=== PATIENT | male | born 1965 | race Caucasian/White ===

== ENCOUNTER 2022-10-14 16:29 | Emergency (ER) | payer SELFPAY ==
[2022-10-14 16:35] VITALS: BP 134/93; PULSE 77; RESP 14; TEMP 36.2; O2SAT 99
[2022-10-14 18:07] LABS: Abs Immature Grans 0.04 10^3/uL (0.0-0.06); Absolute Basophil Count 0.06 10^3/uL (0.0-0.2); Absolute Eosinophil Count 0.04 10^3/uL (0.0-0.7); Absolute Lymphocyte Count 1.64 10^3/uL (1.2-3.4); Absolute Monocyte Count 0.74 10^3/uL (0.1-0.8); Absolute Neutrophil Count 9.18 10^3/uL (1.2-6.7); Basophils % 0.5; Eosinophils % 0.3; HCT 49.8 % (40.0-50.0); HGB 17.4 g/dL (13.5-17.5); Immature Grans % 0.3; MCH 31.2 pg (27.0-33.0); MCHC 34.9 % (32.0-36.0); MCV 89 fL (80-95); MPV 9.1 fL (8.0-11.0); Monocytes % 6.3; Neutrophils % 78.6; Platelet Count 390 10^3/uL (130-400); RBC 5.57 10^6/uL (4.36-5.78); RDW 13.2 % (11.8-14.1); RDW-SD 43.4 fL; WBC 11.68 10^3/uL (4.4-10.8)
--- NOTE | 2022-10-14 18:09 | W.ED.GENAD ---
Discharge Plan Disposition Patient Disposition: Home Discharge Details Chief Complaint: GenMedical Clinical Impression: Inguinal hernia recurrent bilateral Primary Care Provider: Ronn Mcmahon ED Provider: Kamlesh Torres Home Meds and New Rx's Prescriptions: No Action paroxetine HCl [Paxil] 10 mg tablet 10 mg PO DAILY Qty: 90 3RF Discharge Instructions Instructions: Inguinal Hernia (ED) Additional Instructions: Please follow-up with general surgery. Please return to the emergency department for any worsening symptoms. Medical Decision Making 57-year-old male presents with painful bilateral direct inguinal hernias have been present for some time, pain and tenderness began this morning, decreased p.o. intake and slight nausea without vomiting, was able to have a bowel movement and passed gas earlier today. Abdomen soft nontender nondistended. Hemodynamically stable. Does appear uncomfortable. Soft hernias on palpation without overlying skin changes, easily reducible at bedside with great relief of discomfort. No sign of incarceration or strangulation at this moment. Low suspicion for bowel obstruction. Will obtain basic labs will provide analgesia and antiemetics. Close reassessment of symptoms. If improved and stable will have patient follow-up with general surgery 19: 36 patient feeling much better, patient now ambulatory without any discomfort, no further nausea or abdominal pain; hernia sites soft and easily reducible. Patient will be given prompt follow-up with general surgery for evaluation for elective repair. Given home care instructions and return precautions HPI General Date/Time Provider Initiated Documentation: 10/14/22 16:45. HPI Narrative: 57-year-old male presents with bilateral inguinal hernias associate with decreased p.o. intake and nausea today severe pain in the bilateral groins. Was able to have a bowel movement and passed gas earlier. Related Data Home Medications Medication Instructions Recorded Confirmed paroxetine HCl 10 mg tablet (Paxil) 10 mg PO DAILY #90 tab-caps 04/02/22 10/14/22 Previous Rx's Medication Instructions Recorded paroxetine HCl 10 mg tablet (Paxil) 10 mg PO DAILY #90 tab-caps 04/02/22 Allergies Allergy/AdvReac Type Severity Reaction Status Date / Time No Known Allergies Allergy Unverified 10/14/22 17:45 General Stated Complaint: GenMedical LILI: 3 Review of Systems Narrative: Review of Systems Constitutional: negative Eyes: negative ENT: negative Cardiovascular: negative Respiratory: negative Gastrointestinal: negative : Hernia pain Musculoskeletal: negative Skin: negative Neurologic: negative Psych: negative PFSH All Active Problems (Updated 10/14/22 @ 19:39 by Kamlesh Torres MD) Inguinal hernia recurrent bilateral (Acute) Surgical History (Updated 12/03/17 @ 14:36 by [employer] [place]) Hemorrhoidectomy Family History Mother Personal history of malignant neoplasm Father No problems noted. Sister No problems noted. Brother No problems noted. Grandfather No problems noted. Grandmother No problems noted. Social History Smoking/Tobacco Use Status: Current every day Tobacco Type: cigarettes Smoking risk assessment performed?: Yes Alcohol Intake: never Drug use: Never Substance use type: does not use Do you feel safe in your relationship?: Yes Exam Narrative Exam Narrative: Physical Examination General: alert, awake, cooperative, appears uncomfortable HEENT: normocephalic, atraumatic; PERRL, EOM intact, conjunctiva normal; no nasal discharge; moist mucous membranes, oral and pharyngeal mucosa normal, tolerating secretions Neck: supple, trachea midline; full ROM Chest: normal to inspection Respiratory: normal respiratory effort, speaking in full sentences, clear to auscultation, no wheezing, rales or rhonchi Cardiac: regular rate, regular rhythm, S1S2 intact, no murmurs rubs or gallops GI: abdomen soft, non-tender, non-distended; no palpable mass or hepatosplenomegaly : Bilateral direct inguinal hernias tender to the touch however soft easily reducible without overlying skin changes Skin: no lesions, rashes or trauma appreciated Neuro: AAOx3, normal speech, moving all extremities Psych: Appropriate mood and affect Course Vital Signs Vital signs: Vital Signs Temperature 36.2 C L 10/14/22 16:35 Pulse 77 10/14/22 16:35 Respiratory Rate 14 10/14/22 16:35 Blood Pressure 134/93 H 10/14/22 16:35 Pulse Oximetry 99 10/14/22 16:35 Temperature 36.2 C L 10/14/22 16:35 Temperature Source Skin 10/14/22 16:35 Pulse 77 10/14/22 16:35 Respiratory Rate 14 10/14/22 16:35 Respiratory Effort Normal 10/14/22 17:42 Respiratory Depth Normal 10/14/22 17:42 Respiratory Pattern Normal 10/14/22 17:42 Blood Pressure 134/93 H 10/14/22 16:35 Blood Pressure Position Sitting 10/14/22 16:35 Pulse Oximetry 99 10/14/22 16:35 Oxygen Delivery Method Room Air 10/14/22 16:35 Oxygen Flow Rate 0 10/14/22 16:35 Pain Level 8 10/14/22 16:35 Lab/Test Results Lab/Test Results: Laboratory Tests Range/Units 10/14/22 17:36 WBC (4.4-10.8) 10^3/uL 11.68 H RBC (4.36-5.78) 10^6/uL 5.57 Hgb (13.5-17.5) g/dL 17.4 Hct (40.0-50.0) % 49.8 MCV (80-95) fL 89 MCH (27.0-33.0) pg 31.2 MCHC (32.0-36.0) % 34.9 RDW (11.8-14.1) % 13.2 Plt Count (130-400) 10^3/uL 390 MPV (8.0-11.0) fL 9.1 Immature Gran % 0.3 Neutrophils % 78.6 Lymphocytes % 14.0 Monocytes % 6.3 Eosinophils % 0.3 Basophils % 0.5 Nucleated RBC % (0.0-0.3) % 0.0 Absolute Neutrophils (1.2-6.7) 10^3/uL 9.18 H Absolute Lymphocytes (1.2-3.4) 10^3/uL 1.64 Absolute Monocytes (0.1-0.8) 10^3/uL 0.74 Absolute Eosinophils (0.0-0.7) 10^3/uL 0.04 Absolute Basophils (0.0-0.2) 10^3/uL 0.06
[2022-10-14 18:26] LABS: ALT 25 U/L (16-63); AST 16 U/L (15-37); Albumin 4.6 g/dL (3.4-5.0); Alkaline Phosphatase 63 U/L (46-116); Anion Gap 9.7 mmol/L (3-11); BUN 15 mg/dL (7-18); Bilirubin, Total 0.8 mg/dL (0.2-1.0); CO2 29.3 mmol/L (21.0-32.0); CREATININE 0.7 mg/dL (0.70-1.30); Calcium 9.7 mg/dL (8.5-10.1); Chloride 100 mmol/L (98-107); Estimated GFR 108.82 (mL/min/1.73m2); Glucose 87 mg/dL (74-106); Sodium 139 mmol/L (136-145); Total Protein 8.2 g/dL (6.4-8.2)
[2022-10-14] MEDS: Ketorolac 15 MG/ML VIAL IVP (18:44)
[2022-10-14] MEDS: Ondansetron 4 MG/2 ML VIAL IVP (18:45)
[2022-10-14] MEDS: Normal Saline 1,000 ML 1000 ML IV (18:45)
[2022-10-14 20:06] VITALS: BP 132/88; PULSE 72; RESP 14; O2SAT 98
== END 2022-10-14 20:07 | disposition home or self-care (01) ==
PROVIDERS: Emergency Provider Emergency Medicine; PCP Family Medicine
DX: K40.21 Bilateral inguinal hernia, without obstruction or gangrene, recurrent (principal)
CPT/HCPCS: 36415; 80053; 96361; 96374; 96375; 99284; 85025; J1885; J2405

== ENCOUNTER 2022-11-06 06:11 | Day surgery (SDC) | payer SELFPAY ==
[2022-11-06] VITALS (9 sets, daily range): BP systolic 124–156; BP diastolic 75–95; PULSE 52–85; RESP 12–18; TEMP 36–36.6; O2SAT 96–100; BMI 18.2
--- NOTE | 2022-11-06 06:21 | W.PM.PROGNOT ---
Date of Service Date of service: 11/06/22 Time of Service: 06:21 Assessment and Plan Assessment and plan (1) Left inguinal hernia: Status: Acute Assessment and plan: Tl is a pleasant 57-year-old gentleman who on examination certainly has a left inguinal hernia that is a good size.? It does drop down into his scrotum.? It is easily reduced and nonpainful at this time.? We discussed open repair of inguinal hernia.? I reviewed the pathophysiology using a pamphlet as well as the possible complications.? We reviewed pain control with TAP block.? At the end of our conversation patient had a good understanding of the surgery as well as the possible complications.? Risks, benefits and complications have been reviewed. Complications include but are not limited to bleeding, infection, injury to vas, vessels and nerves, injury to bowel, recurrence (3-5%), chronic pain and adverse reaction to medications. Questions were entertained and answered to their satisfaction and they wished to proceed. On the right side I do not believe that he does have a hernia I think he is got an enlarged lymph node.? I could not feel enlarged lymph nodes on the left side or supraclavicularly.? I am concerned about his 20 pound weight loss.? I did tell him that I believe that the right side is a lymph node that is enlarged.? I told him I would make an incision to go down and make sure that he does not have a right inguinal hernia.? If what I find is indeed an enlarged lymph node I will remove it and send it to pathology.? If he does have a small underlying right inguinal hernia then I will fix that as well.? He is in agreement with this plan. Anesthesia: general (without airway) Previous surgical intolerances: No Previous surgical complications: No Pulmonary risk factors: long time smoker Planned procedure: Yes Sleep apnea risks: No Can climb one flight of stairs (12-13 steps) in less than 30 seconds without stopping and without symptoms: Yes The surgery proposed for this patient is: low risk Active cardiac conditions: none Active risk factors: none ASA (acetylsalicylic acid): not used Beta blockers: not used Proceed with left inguinal hernia repair, possible right inguinal hernia repair, possible right inguinal lymph node excisional biopsy. (2) Inguinal lymphadenopathy: Status: Acute Subjective Subjective Interval history since last seen: I saw Tl today in same-day surgery prior to his left inguinal hernia repair possible right inguinal hernia repair versus right inguinal lymph node removal. He has not had any new symptoms. He did not have any upper respiratory infection since I saw him in the office. He has had no chest pain or shortness of breath. We reviewed the procedure again in detail today. I reviewed the possible complications. He did not have any more questions and wished to proceed. Exam Const General: cooperative, comfortable and no acute distress Orientation: alert and oriented x3 HENMT Head: normocephalic and atraumatic Resp Effort & Inspection: normal respiratory effort Auscultation: clear to auscultation bilaterally Cardio Rate: regular rate Rhythm: regular rhythm GI Palpation: soft and hernia (left inguinal hernia) Time Spent with Patient Time Spent with Patient: <25 minutes Time was spent: counseling the patient
--- NOTE | 2022-11-06 06:25 | W.PM.OP ---
Date of service: 11/06/22 Time of Service: : Operative Note Operative Note DATE OF PROCEDURE: 11/06/22 PRE-OP DIAGNOSIS: Left inguinal hernia ?Right inguinal hernia vs right inguinal lymphadenopathy POST-OP DIAGNOSIS: other (Left inguinal hernia, right inguinal hernia and right femoral hernia) PROCEDURE: 1. Left inguinal hernia repair with mesh 2. Right femoral hernia repair with mesh 3. Right inguinal hernia repair with mesh SURGEON: Shahida Barahona ASSOCIATE DIRECTOR DATA & ANALYTICS: Juany Lechuga Refer to Anesthesia Record ESTIMATED BLOOD LOSS: 20 PATHOLOGY: other (Right femoral hernia sac) COMPLICATIONS: None Patient was transported to: PACU Patient's condition: stable Implants: Left Inguinal hernia- PerFix Light Plug: [id number] [id number]/ LOT [id number]/ 2026-10-14 Right Femoral hernia- PerFix Light Plug: REF [id number]/LOT [id number]/ 2024-02-14 Right Inguinal ehrnia- PerFix Light Plug: REF [id number]/LOT [id number]/2024-02-14 BARD Mesh: LOT [id number]/ REF [id number]/ 2027-01-14 Indications: Tl is a pleasant 57-year-old gentleman who on examination certainly has a left inguinal hernia that is a good size.? It does drop down into his scrotum.? It is easily reduced and nonpainful at this time.? We discussed open repair of inguinal hernia.? I reviewed the pathophysiology using a pamphlet as well as the possible complications.? We reviewed pain control with TAP block.? At the end of our conversation patient had a good understanding of the surgery as well as the possible complications.? Risks, benefits and complications have been reviewed. Complications include but are not limited to bleeding, infection, injury to vas, vessels and nerves, injury to bowel, recurrence (3-5%), chronic pain and adverse reaction to medications. Questions were entertained and answered to their satisfaction and they wished to proceed. On the right side I do not believe that he does have a hernia I think he is got an enlarged lymph node.? I could not feel enlarged lymph nodes on the left side or supraclavicularly.? I am concerned about his 20 pound weight loss.? I did tell him that I believe that the right side is a lymph node that is enlarged.? I told him I would make an incision to go down and make sure that he does not have a right inguinal hernia.? If what I find is indeed an enlarged lymph node I will remove it and send it to pathology.? If he does have a small underlying right inguinal hernia then I will fix that as well.? He is in agreement with this plan. Findings: Right femoral hernia with incarcerated fat Small right indirect hernia Left hernia with indirect and direct hernia defect Procedure Description: After informed consent was obtained the patient was taken to the operating room and placed in a supine position. Monitors and SCDs were applied and a timeout was done. The patient's name, date of , procedure type, procedure site, allergies to medications, preoperative antibiotic, and DVT prophylaxis were all reviewed. Fire risk was assessed. Next anesthesia did a tap block on the right side and left side under ultrasound guidance. Please see their separate dictation. Once anesthesia was done the abdomen was prepped and draped in a sterile surgical fashion. 0.5% Marcaine was injected into the dermis in the right lower quadrant. An incision was made with a 10 blade in the right lower quadrant. Dissection was done with cautery through the subcutaneous tissues and Kristal's fascia down to the external oblique fascia. The external ring was identified. Just diral to the ilioinguinal ligament there was a soft mass noted. Carefull dissection was done around it. Once dissected I was able to identify that it was incarcerated fat from a femoral hernia. The sac was opened. There was no intestine. The sac was suture ligated and amputated. A small plug was placed into the defect and secured with 2-0 proline. Next the external oblique fascia was opened sharply through the external ring. The cut fascia was grasped with hemostats the cord structures were identified and a [place] drain was placed around them. The ilioinguinal nerve was identified and cut. The cremasteric muscle was dissected away from the cord structures using both cautery and blunt dissection. A small hernia sac was identified and removed from the cord structures using blunt dissection. The hernia sac was suture ligated and amputated. The remnant was pushed back into the peritoneum. A large plug was placed into the indirect defect and secured with 3-0 proline. A flat piece of mesh was then attached to the lacunar ligament using a 2-0 Prolene double armed suture. The mesh was secured laterally and medially with a 2-0 Prolene, with a running suture. The tails of the mesh were wrapped around the cord structures effectively cinching down the internal ring. Once the mesh was secured the tissues were irrigated with some normal saline. No bleeding was identified. The external oblique fascia was reapproximated using 2-0 Vicryl running suture. The Kristal's fascia was reapproximated using interrupted 3-0 Vicryl. The dermis was reapproximated with a running 4-0 Monocryl. 0.5% Marcaine was injected into the dermis in the left lower quadrant. An incision was made with a 10 blade in the left lower quadrant. Dissection was done with cautery through the subcutaneous tissues and Kristal's fascia down to the external oblique fascia. The external ring was identified. Next the external oblique fascia was opened sharply through the external ring. The cut fascia was grasped with hemostats the cord structures were identified and a [place] drain was placed around them. The ilioinguinal nerve was identified and cut. The cremasteric muscle was dissected away from the cord structures using both cautery and blunt dissection. A small hernia sac was identified and removed from the cord structures using blunt dissection. The hernia sac was suture ligated and amputated. The remnant was pushed back into the peritoneum. A large plug was placed into the indirect defect and secured with 3-0 proline. A flat piece of mesh was then attached to the lacunar ligament using a 2-0 Prolene double armed suture. The mesh was secured laterally and medially with a 2-0 Prolene, with a running suture. The tails of the mesh were wrapped around the cord structures effectively cinching down the internal ring. Once the mesh was secured the tissues were irrigated with some normal saline. No bleeding was identified. The external oblique fascia was reapproximated using 2-0 Vicryl running suture. The Kristal's fascia was reapproximated using interrupted 3-0 Vicryl. The dermis was reapproximated with a running 4-0 Monocryl. The skin was cleaned and dried and skin affix was applied. The patient was woken up and taken back to recovery in stable condition. There were no immediate complications. Sponge, instrument and needle counts were correct at the end of the case x2.
[2022-11-06] MEDS: Celecoxib 200 MG CAP PO (06:49)
[2022-11-06] MEDS: Acetaminophen 500 MG TAB 1000 MG PO (06:49)
[2022-11-06] MEDS: Lactated Ringers 1,000 ML 80 ML IV (06:50)
--- NOTE | 2022-11-06 07:03 | W.PM.DSUDISC ---
Date of service: 11/06/22 Time of Service: 10:38 Discharge Plan Disposition Patient Disposition: Home Condition: Stable Discharge Details Attending Provider: Shahida Barahona Primary Care Provider: Ronn Mcmahon Home Meds and New Rx's Prescriptions: New tramadol 50 mg tablet 50 mg PO Q6H PRNQty: 14 0RF Continued paroxetine HCl [Paxil] 10 mg tablet 10 mg PO DAILY Qty: 90 3RF Discharge Instructions Instructions: Open Herniorrhaphy (DC) Additional Instructions: Activity at Home after surgery: 1. Make sure you walk outside at least 4 times per day 2. You should be able to climb a flight of stairs 3. No driving while in pain or taking pain medications 4. No strenuous activity or heavy lifting (no more then 10 lb) for 4 weeks (open surgery) Diet, Nutrition, & wound healin. Avoid alcohol until after you are recovered from your surgery 2. Make sure to eat plenty of lean protein (meat, fish, eggs, cottage cheese, beans) 3. Eat a variety of fruits and vegetables. Eat plenty of high fiber foods to avoid constipation. 4. Drink plenty of liquids to stay hydrated and avoid constipation Pain Medications: 1. Tylenol 650mg every 6 hours as needed and Ibuprofen 600 mg every 6 hours as needed. You may alternate between the 2 medications every 3 hours 2. If a narcotic has been prescribed take as directed only for breakthrough pain For Constipation: 1. Take Milk of Magnesia or MiraLax as needed for constipation Other: 1. You may shower daily. Do not scrub the incisions 2. Do not soak the incisions for 1 week 3. You may alternate ice and heat as needed for pain and swelling Wound Care: 1. Keep the incisions clean and dry Please call our office if you develop: 1. Fevers >101.5 2. Nausea or Vomiting 3. Worsening pain 4. Redness and thick discharge from the wounds If after hours please call the Hospital at and ask to speak to the on-call surgeon Referrals: Shahida Barahona MD [ [facility] STAFF PHYSICIAN] - 11/19/22 8:00 am Activity:: as above Diet:: As Tolerated Discharge Orders Discharge Orders: Discharge Order (Routine); Ordered 11/06/22 Ordered By: Shahida Barahona DS: Diagnosis Discharge Diagnosis (1) Left inguinal hernia: Status: Acute Asessment and Plan: The patient is doing well post-op from their Right Femoral and inguinal hernia repair and left inguinal hernia repair surgery.? They are having no nausea or vomiting. They are tolerating liquids and a snack. The pt is not having any chest pain or SOB.? Their pain is adequately controlled. They have been able to urinate.? he is worried about pain at night and is requesting some Tramadol. ?HEENT:? no eye pain/drainage/redness/swelling. Mild sore throat ?Cardio- NSR, no chest pain, BP stable- see VS record ?Pulm: no sob or productive cough. No hemoptysis ?Incision- dressing is c/d/i w/ no excessive bleeding or drainage ?I discussed with the patient the findings at the time of surgery and the patient?s progress. ?We reviewed expectations at home; what the patient could expect for recovery time, and in the post-operative period.? We discussed the importance of walking to avoid blood clots and pneumonia.? We discussed and reviewed the patient's post-operative wound care and dressing needs.?? We reviewed their step-grant pain management plan, Rx called to the pharmacy of their choice.? We reviewed activity and limitations-see discharge instructions. We reviewed warning signs, and when to seek medical attention- see d/c instructions.?? Patient was given a postoperative follow-up appointment. Patient verbalized understanding of their postoperative instructions, how do to take care of themselves and their incision, and the pain management plan. Please see discharge instructions.? (2) Inguinal lymphadenopathy: Status: Acute
--- NOTE | 2022-11-06 07:10 | ANES.PREOP_ITS ---
General Info Date of Service Date Performed: 11/06/22 Height: 6 ft 2 in Weight: 64.5 kg Body Mass Index (BMI): 18.2 Surgical Procedure: Operation Date: 11/06/22 07:40 Proposed Procedure Side Surgeon p Herniorrhaphy Inguinal w/Mesh, possible Inguinal Lymph Node Bx Bilateral Shahida Barahona MD Actual Procedure Side Surgeon p Herniorrhaphy Inguinal w/Mesh, possible Inguinal Lymph Node Bx Bilateral Shahida Barahona MD Meds Allergies and Home Medications Allergies Allergy/AdvReac Type Severity Reaction Status Date / Time No Known Allergies Allergy Unverified 11/06/22 06:28 Home Medication Medication Instructions Recorded paroxetine HCl 10 mg tablet (Paxil) 10 mg PO DAILY #90 tab-caps 04/02/22 Current Visit Medications: Current Medications Generic Name Dose Route Start Last Admin Trade Name Freq PRN Reason Stop Dose Admin Acetaminophen 1,000 mg 11/06/22 06:00 11/06/22 06:49 Acetaminophen 500 Mg Tab PO 12/05/22 23:59 1,000 mg PREOP HUNTER Administration Celecoxib 200 mg 11/06/22 06:00 11/06/22 06:49 Celecoxib 200 Mg Cap PO 12/05/22 23:59 200 mg PREOP HUNTER Administration Ringer's Solution 1,000 mls @ 80 mls/hr 11/06/22 06:00 IV 12/05/22 23:59 INFUSION HUNTER Cefazolin Sodium/Dextrose 2 gm in 50 mls @ 100 mls/hr 11/06/22 06:00 Ancef Duplex IVPB 12/05/22 23:59 PREOP HUNTER Ondansetron HCl 4 mg/ Sodium 52 mls @ 200 mls/hr 11/06/22 06:28 Chloride IVPB 12/06/22 06:27 Q6H PRN PRN IV Miscellaneous Supplies 1 each 11/06/22 06:00 Iv Access IV 12/05/22 23:59 DIRECTED HUNTER Ibuprofen 600 mg 11/06/22 06:28 Ibuprofen 600 Mg Tab PO 12/06/22 06:27 Q6H PRN PRN Pain Sodium Chloride 0 ml 11/06/22 06:00 Normal Saline Flush 10 Ml Syr IV 12/05/22 23:59 PRN PRN Sodium Chloride 0 ml 11/06/22 06:00 Normal Saline 10 Ml Vial IJ 12/05/22 23:59 DIRECTED PRN Sterile Water 0 ml 11/06/22 06:00 Water,Injection,Sterile 10 Ml Vial IJ 12/05/22 23:59 DIRECTED PRN Tramadol HCl 50 mg 11/06/22 06:28 Tramadol 50 Mg Tab PO 12/06/22 06:27 Q6H PRN PRN Pain PFSH Active Problems Active Problems: Problem Status Onset Code Inguinal lymphadenopathy R59.0 Left inguinal hernia K40.90 Smoker F17.200 History of alcoholism F10.21 Depressive disorder F32.A Anxiety F41.9 Inguinal hernia recurrent bilateral K40.21 Medical History Medical History Insomnia Internal hemorrhoids without complication banded - 08/27 Rectal prolapse (10/16/16) Testicular hypofunction Surgical History Surgical History Hemorrhoidectomy History of hemorrhoidectomy Tobacco Smoking/Tobacco Use Status: Current every day Tobacco Type: cigarettes Alcohol Alcohol Intake: current Alcohol intake frequency: 3 or more drinks per day Alcohol type: beer Substance Use Substance use: Daily Substance use type: marijuana Vital Signs and Lab Results Vital Signs Most Recent Vital Signs in EMR: Most Recent Vital Signs Temp Pulse Resp BP Pulse Ox 36.3 C L 60 18 135/80 99 11/06/22 06:36 11/06/22 06:36 11/06/22 06:36 11/06/22 06:36 11/06/22 06:36 Lab Results Blood Type / Crossmatch: No Data to Display Complete Blood Count: White Blood Count 11.68 10^3/uL (4.4-10.8) H 10/14/22 17:36 Red Blood Count 5.57 10^6/uL (4.36-5.78) 10/14/22 17:36 Hemoglobin 17.4 g/dL (13.5-17.5) 10/14/22 17:36 Hematocrit 49.8 % (40.0-50.0) 10/14/22 17:36 Platelet Count 390 10^3/uL (130-400) 10/14/22 17:36 Complete Metabolic Panel: Sodium 139 mmol/L (136-145) 10/14/22 17:36 Potassium 4.0 mmol/L (3.5-5.1) 10/14/22 17:36 Chloride 100 mmol/L (98-107) 10/14/22 17:36 Carbon Dioxide 29.3 mmol/L (21.0-32.0) 10/14/22 17:36 BUN 15 mg/dL (7-18) 10/14/22 17:36 Creatinine 0.7 mg/dL (0.70-1.30) 10/14/22 17:36 Est GFR (CKD-EPI 2020) 108.82 (mL/min/1.73m2) 10/14/22 17:36 Calcium 9.7 mg/dL (8.5-10.1) 10/14/22 17:36 Albumin 4.6 g/dL (3.4-5.0) 10/14/22 17:36 Glucose 87 mg/dL (74-106) 10/14/22 17:36 Liver Function Panel: Alanine Aminotransferase (ALT/SGPT) 25 U/L (16-63) 10/14/22 17: 36 Aspartate Amino Transf (AST/SGOT) 16 U/L (15-37) 10/14/22 17:36 Coagulation Panel: No Data to Display Cardiac Panel: No Data to Display Arterial Blood Gas: No Data to Display Venous Blood Gas: No Data to Display Pancreas Panel: No Data to Display Thyroid Panel: No Data to Display Infectious Disease: No Data to Display Blood Cultures: No Data to Display Toxicology Panel: No Data to Display Anesthesia Assessment and Plan Anesthesia History Personal History: No History of Anesthesia Complications Family History: No Family History of Anesthesia Complications Exercise Tolerance Exercise Tolerance: Metabolic Equivalents>4 Pertinent Negatives Pertinent Negatives: No Symptoms of GERD, No Major Cardiovascular Symptoms or Complaints, No Major Pulmonary Symptoms or Complaints and No History of CVA/TIA Cardiac & Pulmonary Exam Cardiac Exam: Normal S1/S2 Heart Sounds Pulmonary Exam: Clear Bilateral Breath Sounds Implantable Cardiac Device Does patient have a Pacemaker or an ICD?: No Airway Exam Known Difficult Airway: No Mallampati Class: 1 Mouth Opening: Normal (> 3cm) Thyromental Distance: Greater than 3 cm Facial Hair: Full [place]ck Range of Motion: Full ROM Neck Circumference: Normal Teeth Condition: Normal Dentition ASA Classification ASA Score: ASA 2 Emergency Case?: No NPO Status NPO Status: NPO Clears >2 hours, Solids >8 hours Anesthesia Plan Resuscitation Status: Full Code Anesthesia Technique: General Anesthesia Airway Planned: Endotracheal Tube Pain Management: Surgeon and patient request nerve block Monitors Used: Standard Monitors
[2022-11-06] MEDS: ceFAZolin 2 GM/50 ML BAG IVPB (07:37)
--- NOTE | 2022-11-06 07:58 | W.ANESNERVE ---
Nerve Block Single Injection Procedure Date and Time Date Performed: 11/06/22 Procedure Start: 07:40 Location Where Procedure Performed Procedure Location: Operating Room (Rm: 1) Procedure Stop: 07:51 Reason Performed: Postoperative Analgesia Requesting Provider: Shahida Barahona Timeout Performed Timeout Performed: Yes Monitoring Used ECG, Blood Pressure, SpO2, ETCO2 and See EMR for corresponding vital signs Sterility Sterility: Hand Hygiene, Surgical Cap, Surgical Mask, Sterile Gloves, Eye Protection and Chlorhexidine Sedation Given During Procedure Sedation Given (Indicate Dose Given): Other: (GA) Medication/Route/Dose:: See Record Patient Mental Status Patient Mental Status: Performed under general anesthesia Nerve Block 1st Nerve Block: Laterality: Left Block Type: TAP Bilateral Ultrasound Image Saved?: Yes Needle / Catheter Used: 100mm SonoPlex II Local Anesthetic Bolus (Indicate Dose Given): None, Bupivacaine 0.25% Dose:: 0.25%/15cc (37.5) and Exparel Dose:: 10cc (133mg) Additives (Indicate Dose Given): Epinephrine to make 1:200,000 (5mcg/ml) Dose:: 75mcg Ultrasound: Sterile probe cover and gel used Nerve Stimulator: Not Used Paresthesia: None Procedure Tolerated: No Complications and Patient tolerated well Procedure Outcome: Successful Performed By: Harsh Fields 2nd Nerve Block: Laterality: Right Block Type: TAP Bilateral Ultrasound Image Saved?: Yes Needle / Catheter Used: 100mm SonoPlex II Local Anesthetic Bolus (Indicate Dose Given): None, Bupivacaine 0.25% Dose:: 0.25%/15cc (37.5mg) and Exparel Dose:: 10cc (133mg) Additives (Indicate Dose Given): Epinephrine to make 1:200,000 (5mcg/ml) Dose:: 75mcg Ultrasound: Sterile probe cover and gel used Nerve Stimulator: Not Used Paresthesia: None Procedure Tolerated: No Complications and Patient tolerated well Procedure Outcome: Successful Performed By: Harsh Fields
--- NOTE | 2022-11-06 08:15 | HERN_PTH ---
PATIENT: Tl Howard Jr LOC: [facility] U#:[id number] AGE/SX: 57/M ROOM: RE11/06/[address]: Shahida Barahona MD : [id number] BED: DIS: 11/06/2022 SPEC #: [id number] RECD: 11/06/22 12:45 STATUS: POWER REQ #: [id number] KING: 11/06/22 08:[address]: Shahida Barahona DEPT: Surgical Specimen RECD BY: Anna Lara ENTERED: 11/06/22 12:47 SP TYPE: Hernia Sac OTHR DR: Ronn Mcmahon MD Tissues: 1 - HERNIA SAC, INGUINAL Procedures: GROSS AND MICRO LEVEL 2 Comments: [id number]
[2022-11-06] MEDS: Bupivacaine 0.25% Pres-Free 30 ML VIAL (09:13)
--- NOTE | 2022-11-06 10:30 | W.ANESPOSTOP ---
Postoperative Evaluation Date, Time and Location Date Performed: 11/06/22 Time Performed: 10:22 Patient Location: PACU Vital Signs Most Recent Imported Vital Signs: Most Recent Vital Signs Temp Pulse Resp BP Pulse Ox 36.3 C L 58 L 14 142/82 H 99 11/06/22 10:05 11/06/22 10:05 11/06/22 10:05 11/06/22 10:05 11/06/22 10:05 Pain Score Most Recent Pain Score: Most Recent Pain Score Pain Level 1 11/06/22 10:05 Assessment Mental Status: Awake (Alert & Oriented to Patient Baseline) Airway and Respiratory Function: Patent airway with normal (patient baseline) respiratory exam Cardiovascular Function: Hemodynamically Stable Hydration Status: Adequately Hydrated Nausea & Vomiting: No Nausea or Vomiting Pain: Pain is tolerable per patient Peripheral Nerve Block: Regional nerve block not resolved at time of post operative discharge
== END 2022-11-06 11:15 | disposition home or self-care (01) ==
PROVIDERS: PCP Family Medicine; Visit Provider Surgery
PROC: (CPT 49553; principal; 2022-11-06 07:30)
DX: K40.90 Unilateral inguinal hernia, without obstruction or gangrene, not specified as recurrent (principal); K41.30 Unilateral femoral hernia, with obstruction, without gangrene, not specified as recurrent; R59.0 Localized enlarged lymph nodes; M79.89 Other specified soft tissue disorders
CPT/HCPCS: 49553; 49505; 88300; 88302; C1781; J0171; J0690; J2704